=== PATIENT | male | born 1980 | race Caucasian/White ===

== ENCOUNTER 2021-07-15 12:51 | Inpatient (IN) | payer OTHER, SELFPAY ==
[2021-07-15] VITALS (67 sets, daily range): BP systolic 85–117; BP diastolic 58–84; PULSE 83–104; RESP 14–28; TEMP 36.5–37.3; O2SAT 94–97; BMI 24.1
--- NOTE | ~2021-07-15 | CT_ITS ---
EXAMINATION: CTA chest PE protocol DATE: 07/15/2021 14:55 INDICATION: Shortness of breath, fever. Hemoptysis, tachycardia. Covid-positive. TECHNIQUE: Computed tomography angiography (CTA) of the chest was performed with 100 mL Omnipaque-350 intravenous contrast timed to evaluate the pulmonary arteries. Coronal maximum intensity projection 3D-reconstructions were created by the technologist. Automated exposure control and iterative reconst ruction technique were employed. Exam dose: 271.56 mGy-cm total exam DLP. COMPARISON: 07/15/2021 portable AP chest FINDINGS: There is diagnostic contrast enhancement of the pulmonary arteries and no evidence of pulmo nary embolism. No thoracic aortic aneurysm or dissection. Normal size and homogeneous enhancement of the thyroid gland. Normal heart size. No pericardial or pleural effusion. Patchy groundglass infiltrates scattered throughout all lobes of both lungs, consistent with multifoc al pneumonia, most likely Covid 19 pneumonia. Included skeletal structures are unremarkable. IMPRESSION: Patchy bilateral pulmonary infiltrates consistent with Covid pneumonia No evidence of pulmonary embolism Reviewed, dictated and finalized at [facility]. Reviewed, dictated and finalized at [facility]. IMPRESSION: Patchy bilateral pulmonary infiltrates consistent with Covid pneumo bhavana No evidence of pulmonary embolism
--- NOTE | ~2021-07-15 | XR_ITS ---
EXAMINATION: XR chest 1V portable DATE: 07/15/2021 13:12 INDICATION: Cough, fever and shortness of breath. COVID positive. TECHNIQUE: frontal view of the chest was obtained. COMPARISON: None FINDINGS: Patchy airspace opacities in the mid and lower lung zones, left greater than right. No pleural effusi on or pneumothorax. The cardiomediastinal silhouette is within normal limits for AP technique. Visual ized bones and soft tissues are unremarkable. IMPRESSION: 1. Patchy bilateral airspace opacities in the mid and lower lung zones, left greater than right which could represent COVID pneumonia or mild pulmonary edema. Reviewed, dictated and finalized at location [facility]. IMPRESSION: 1. Patchy bilateral airspace opacities in the mid and lower lung zones, left gr eater than right which could represent COVID pneumonia or mild pulmonary edema.
--- NOTE | 2021-07-15 13:00 | ECG_ITS ---
Measurements Intervals [place] Rate: 93 P: 38 MO: 126 QRS: 64 QRSD: 101 T: 17 QT: 328 QTc: 409 Interpretive Statements SINUS RHYTHM POSSIBLE LEFT ATRIAL ENLARGEMENT ST ELEVATION IN DIFFUSE LEADS- PROBABLY EARLY REPOLARIZATION ABNORMALITY MINIMAL Q WAVES- INFERIOR LEADS BORDERLINE ECG Electronically Signed On 07-16-2021 15:08:57 CDT by Guero Granados D.O.
--- NOTE | 2021-07-15 13:01 | ED.URI ---
HPI - URI/Sore Throat General Chief Complaint: Upper Respiratory Infection Stated Complaint: Covid + and coughing up blood, not vaccinated Time Seen by Provider: 07/15/21 12:54 History of Present Illness HPI Narrative: Patient presents with cough and myalgias. Patient reports he has had cough, fatigue, general body aches for the past week. He was tested for Covid and was called today to let him know that his test was positive. He also noted worsening cough today with some hemoptysis he called in urgent care was referred to the ER for evaluation. Hemoptysis is with small streaks. Denies any lightheadedness or dizziness denies any focal chest pain or pleurisy Related Data Home Medications Medication Instructions Recorded Confirmed No Home Medications 07/15/21 07/15/21 Allergies Allergy/AdvReac Type Severity Reaction Status Date / Time No Known Allergies Allergy Verified 07/15/21 12:59 Review of Systems Review of Systems: CONSTITUTIONAL: Denies fever, chills, or sweats. EYES: Denies visual changes, redness, or discharge. ENT: Denies rhinorrhea, congestion, sore throat, or otalgia. CARDIOVASCULAR: Denies chest pain, palpitations, or edema. RESPIRATORY: Reports cough and shortness of breath GASTROINTESTINAL: Denies abdominal pain, vomiting, or diarrhea. GENITOURINARY: Denies dysuria or hematuria. SKIN: Denies rash or itching. MUSCULOSKELETAL: Denies back pain, joint pain, or myalgia. NEUROLOGIC: Denies headache, numbness, dizziness, or weakness. PSYCHIATRIC: Denies anxiety or depression. All systems reviewed & are unremarkable except as noted in HPI and below PMFSH Past Medical History Medical History (Updated 07/15/21 @ 16:56 by Ania Moraes NP) No pertinent past medical history Tobacco abuse Surgical History Surgical History (Updated 07/15/21 @ 16:50 by Ania Moraes NP) No pertinent past surgical history Family History Family History (Updated 07/15/21 @ 16:50 by Ania Moraes NP) Unknown No pertinent family history Social History Social History (Updated 07/15/21 @ 16:53 by Ania Moraes NP) Social History: The patient lives with his girlfriend. He is single and has no children. He works for [employer]. The patient continues to smoke a half pack a cigarettes a day. Occasionally smokes marijuana. He does not use any illicit drugs or alcohol. He does not have a durable power senior trial attorney for healthcare. the patient desires to be a full code. Smoking status: Current some day smoker Tobacco type: cigarettes Substance use: current Substance use type: marijuana Living arrangements: with friend(s) Occupation/Education: occupation Gender identity (if verbalized by the patient): Male Exam Narrative: GENERAL: Well-appearing, well-nourished, and in no acute distress. HEAD: Normocephalic, atraumatic. EYES: PERRLA and EOMI. ENT: Nares clear, no rhinorrhea or epistaxis. Mucous membranes moist. NECK: Supple. No masses. No JVD CHEST: Clear to auscultation. No respiratory distress. No wheezes rales or rhonchi HEART: Regular rate and rhythm. No murmur heard. Normal peripheral pulses. ABDOMEN: Soft, nontender, nondistended, normal active bowel sounds. EXTREMITIES: Normal range of motion. No edema. SKIN: Warm, dry, no rash. NEURO: No focal deficits. Alert and oriented x3. PSYCH: Normal mood and affect. Course Vital Signs Vital signs: Vital Signs Temperature 37.3 C 07/15/21 12:57 Pulse Rate 104 H 07/15/21 12:57 Respiratory Rate 22 H 07/15/21 12:57 Blood Pressure 117/83 07/15/21 12:57 Pulse Oximetry 96 07/15/21 12:57 Temperature 37.3 C 07/15/21 12:57 Pulse Rate 87 07/15/21 17:46 Respiratory Rate 21 H 07/15/21 17:46 Blood Pressure 96/76 L 07/15/21 17:46 Pulse Oximetry 95 07/15/21 17:25 MDM - URI/Sore Throat MDM Narrative Medical decision making narrative: H&P as above, vs initially with mild tachycardia no hypoxia, pt lo
[2021-07-15] MEDS: ONDANSETRON INJ 4 MG/2 ML VIAL IV PUSH (13:18)
[2021-07-15] MEDS: SODIUM CHLORIDE 0.9% IV 1,000 ML 999 ML IV CONT (13:18)
[2021-07-15 13:34] LABS: Basophils Percent Auto 0.3 % (0.2-1.2); Hematocrit 47.1 % (42.0-52.0); Hemoglobin 15.8 g/dL (14.0-18.0); Immature Granulocyte Absolute 0.02 K/mm3 (0.00-0.031); Immature Granulocyte Percent A 0.5 % (0-0.5); Lymphocytes Absolute Auto 1.05 K/mm3 (0.9-3.2); Lymphocytes Percent Auto 26.3 % (18.3-44.2); Mean Corpuscular HGB Conc 33.5 g/dl (32-36); Mean Corpuscular Volume 89.5 fl (80-100); Mean Platelet Volume 9.6 fl (7.4-10.4); Monocytes Absolute Auto 0.3 K/mm3 (0.1-0.6); Monocytes Percent Auto 6.8 % (2.6-8.5); Neutrophils Absolute Auto 2.6 K/mm3 (1.3-6.7); Neutrophils Percent Auto 66.1 % (45.5-73.1); Platelet Count Result 141 k/mm3 (150-375); Red Blood Count 5.26 M/mm3 (4.6-6.20); Red Cell Distribution Width 13.1 % (11.5-14.5)
[2021-07-15 13:46] LABS: Alanine Aminotransferase 47 U/L (4-50); Alkaline Phosphatase 81 U/L (38-126); Anion Gap 9 mmol/L (8-16); Aspartate Amino Transferase 37 U/L (17-59); Bilirubin,Total 0.5 mg/dL (0.2-1.3); Blood Urea Nitrogen 21 mg/dL (9-20); Calcium 8.3 mg/dL (8.4-10.2); Carbon Dioxide 22 mmol/L (22-30); Chloride 100 mmol/L (98-107); Estimated CRCL calculation 95 ml/min; Estimated Glomerular Filt Rate > 60; Glucose 111 mg/dL (65-110); Potassium 4.2 mmol/L (3.4-5.0); Sodium 131 mmol/L (137-145)
--- NOTE | 2021-07-15 14:43 | PC.NURSE ---
Pt off floor to radiology
[2021-07-15] MEDS: KETOROLAC 15 MG/ML VIAL (*BKC) IV PUSH (15:14)
--- NOTE | 2021-07-15 16:44 | PM.IMHP ---
H&P: HPI History of Present Illness Date/Time: 07/15/21 16:44 this is a 40-year-old male patient. Who stated that he has had a cough and malaise for several days. He has tactile fever. His diaphoretic. The patient stated that he tested positive for COVID-19 on Friday. The patient went to the urgent care today who returns for him to come to the emergency room here. Patient had small streaks of blood in his sputum. The patient attempted to go to work today but felt very short of breath with exertion. Patient's O2 saturations are 90 to be 91% on room air without exertion. The patient was given IV fluids, Zofran, Toradol, and Decadron. Chest x-ray was read as patchy bilateral airspace opacities in the mid and lower lung zones, left greater than right which could represent COVID pneumonia or mild pulmonary edema. CTA patchy bilateral pulmonary infiltrates consistent with COVID pneumonia. No evidence of pulmonary embolism. The patient is being admitted for observation status on the date of service of 07/15/2021. Chief Complaint: sob Review of Systems Review of Systems: All systems reviewed & are unremarkable except as noted in HPI and below Constitutional: Constitutional: Reports as per HPI and Reports no additional constitutional complaints Eyes: Eyes: Reports as per HPI and Reports no additional eye complaints ENT: Reports system reviewed and no additional complaints, except as documented and Reports Normal hearing present Cardiovascular: Cardiovascular: Reports no additional cardiovascular complaints Respiratory: Respiratory: Reports no additional respiratory complaints and Reports no additional respiratory complaints Gastrointestinal: Gastrointestinal: Reports as per HPI and Reports no additional gastrointestinal complaints Musculoskeletal: Musculoskeletal: Reports no additional musculoskeletal complaints Integumentary/Breasts: Skin/Breast: Reports system reviewed and no additional complaints, except as docu and Reports as per HPI Neurologic: Reports system reviewed and no additional complaints, except as documented, Reports as per HPI and Reports Normal hearing present Psychiatric: Psychiatric: Reports no additional psychiatric complaints and Reports as per HPI Endocrine: Endocrine: Reports no additional endocrine complaints Hematologic/Lymphatic: Hematologic/Lymphatic: Reports no additional hematologic/lymphatic complaints Allergic/Immunologic: Allergic/Immunologic: Reports no additional allergic/immunologic complaints COUNTS INCLUDE 234 BEDS AT THE [facility] Past Medical History Medical History (Updated 07/15/21 @ 16:56 by Ania Moraes NP) No pertinent past medical history Tobacco abuse Surgical History Surgical History (Updated 07/15/21 @ 16:50 by Ania Moraes NP) No pertinent past surgical history Family History Family History (Updated 07/15/21 @ 16:50 by Ania Moraes NP) Unknown No pertinent family history Social History Social History (Updated 07/15/21 @ 16:53 by Ania Moraes NP) Social History: The patient lives with his girlfriend. He is single and has no children. He works for [employer]. The patient continues to smoke a half pack a cigarettes a day. Occasionally smokes marijuana. He does not use any illicit drugs or alcohol. He does not have a durable power district attorney for healthcare. the patient desires to be a full code. Smoking status: Current some day smoker Tobacco type: cigarettes Substance use: current Substance use type: marijuana Living arrangements: with friend(s) Occupation/Education: occupation Gender identity (if verbalized by the patient): Male Meds Home Medications and Allergies Home Medications Medication Instructions Recorded Confirmed Type No Home Medications 07/15/21 07/15/21 History Allergies Allergy/AdvReac Type Severity Reaction Status Date / Time No Known Allergies Allergy Verified 07/15/21 12:59 Vital Signs Vital Signs - 24 hr
[2021-07-15 16:48] LABS: Alanine Aminotransferase 41 U/L (4-50); Estimated CRCL calculation 106 ml/min; Estimated Glomerular Filt Rate > 60
[2021-07-15 16:49] LABS: CRP 1.5 mg/dL (<1.0); Lactate Dehydrogenase 712 U/L (313-618)
[2021-07-15 16:50] LABS: Prothrombin Time 12.6 Seconds (11.1-14.7)
[2021-07-15 16:52] LABS: D Dimer 0.56 ug/mL (<0.48)
[2021-07-15 17:05] LABS: D Dimer 0.56 ug/mL (<0.48)
[2021-07-15] MEDS: DEXAMETHASONE SOD PHOS INJ 4 MG/ML VIAL 10 MG IV PUSH (17:20)
--- NOTE | 2021-07-15 17:24 | PC.NURSE ---
Saturations 91%. Placed on 2 liters NC. Pt states he discussed oxygen with hospitalist.
--- NOTE | 2021-07-15 17:29 | PC.NURSE ---
Called dietary for dinner tray for patient.
[2021-07-15] MEDS: REMDESIVIR 200 MG/NS 250 ML 200 MG/250 ML BAG 250 MG IVPB (17:48)
--- NOTE | 2021-07-15 20:27 | ADMGEN ---
This patient, Luis Knox, was admitted to [facility] Surg Room 319-01 at 2009. Patient/family oriented to hospital policies and general routines including ID bracelet, bed and alarms, visiting hours, pain management, procedures, bathroom and other care routines, personal items, smoking policy, room service/diet, and visiting hours. Information on how to activate the Rapid Response Team has been discussed. Patient/Family are encouraged to report perceived risks to care and to ask questions if they do not understand what they are told or what they should do.
[2021-07-16] VITALS: BP 99/68; PULSE 72; RESP 18; TEMP 36.1; O2SAT 91
[2021-07-16 04:00] VITALS: BP 99/53; PULSE 71; RESP 18; TEMP 36.1; O2SAT 96
[2021-07-16 06:41] LABS: Basophils Percent Auto 0.7 % (0.2-1.2); Hematocrit 43.8 % (42.0-52.0); Hemoglobin 14.5 g/dL (14.0-18.0); Lymphocytes Absolute Auto 0.51 K/mm3 (0.9-3.2); Lymphocytes Percent Auto 37.2 % (18.3-44.2); Mean Corpuscular HGB Conc 33.1 g/dl (32-36); Mean Corpuscular Hemoglobin 29.6 pg (26-34); Mean Corpuscular Volume 89.4 fl (80-100); Mean Platelet Volume 9.1 fl (7.4-10.4); Monocytes Absolute Auto 0.1 K/mm3 (0.1-0.6); Monocytes Percent Auto 5.8 % (2.6-8.5); Neutrophils Absolute Auto 0.8 K/mm3 (1.3-6.7); Neutrophils Percent Auto 56.3 % (45.5-73.1); Platelet Count Result 160 k/mm3 (150-375); Red Cell Distribution Width 13.1 % (11.5-14.5)
[2021-07-16 07:08] LABS: INR 0.9; Prothrombin Time 12.4 Seconds (11.1-14.7)
[2021-07-16 07:11] LABS: Alanine Aminotransferase 42 U/L (4-50); Albumin Level 3.7 g/dL (3.5-5.1); Alkaline Phosphatase 83 U/L (38-126); Anion Gap 8 mmol/L (8-16); Aspartate Amino Transferase 28 U/L (17-59); Bilirubin,Total 0.4 mg/dL (0.2-1.3); Blood Urea Nitrogen 22 mg/dL (9-20); CRP 1.7 mg/dL (<1.0); Calcium 8.2 mg/dL (8.4-10.2); Carbon Dioxide 22 mmol/L (22-30); Chloride 108 mmol/L (98-107); Estimated CRCL calculation 144 ml/min; Estimated Glomerular Filt Rate > 60; Glucose 121 mg/dL (65-110); Lactate Dehydrogenase 569 U/L (313-618); Potassium 4.3 mmol/L (3.4-5.0); Sodium 138 mmol/L (137-145)
[2021-07-16 07:35] LABS: Thyroid Stimulating Hormone Reflex 0.174 uIU/mL (0.465-4.68)
[2021-07-16 07:53] LABS: White Blood Count 1.4 K/mm3 (4.5-10.0)
[2021-07-16 08:00] VITALS: BP 98/67; PULSE 79; RESP 18; TEMP 36.3; O2SAT 94
[2021-07-16] MEDS: ENOXAPARIN 40 MG/0.4 ML SYRINGE SUB-Q (08:48)
[2021-07-16] MEDS: guaiFENesin/DEXTROMETHORPHAN 10 ML UDC PO ×2 (08:53→20:18)
[2021-07-16 12:00] VITALS: BP 112/87; PULSE 92; RESP 20; TEMP 36.6; O2SAT 95
[2021-07-16 12:32] LABS: Free T4 Free Thyroxine Reflex 1.26 ng/dL (0.78-2.19)
--- NOTE | 2021-07-16 12:38 | PM.IMPN ---
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 Continue daily steroids and remdesivir. Monitor oxygen saturation, however currently on room air and asymptomatic, and able to ambulate. Noted that CT angiogram did not show pulmonary embolism, continue DVT prophylaxis with Lovenox. Possible discharge tomorrow if patient at baseline. Subjective Date/time seen: 07/16/21 12:38 No acute medical complaints. On room oxygen, breathing okay. Tolerating diet. Sleeping through the night. Able to ambulate without dyspnea. Review of Systems Review of Systems: All systems reviewed & are unremarkable except as noted in HPI and below Exam Const: General: no acute distress Neck: Neck: no JVD Resp: Effort & Inspection: normal respiratory effort Auscultation: clear to auscultation bilaterally Cardio: Rate: regular rate Rhythm: regular rhythm GI: GI Palp: Yes Soft to palpation and No Tenderness to palpation present (GI) Objective Data Vital Signs Vital Signs: Vital Signs - 24 hr 07/15/21 12:57 07/15/21 13:07 07/15/21 13:15 Temperature 99.2 F Pulse Rate 104 H 96 94 Respiratory Rate 22 H 18 27 H Blood Pressure 117/83 Pulse Oximetry 96 07/15/21 13:16 07/15/21 13:17 07/15/21 13:19 Temperature Pulse Rate 94 93 92 Respiratory Rate 25 H 27 H 23 H Blood Pressure 88/63 L 85/63 L 92/65 L Pulse Oximetry 07/15/21 13:20 07/15/21 13:30 07/15/21 13:31 Temperature Pulse Rate 95 93 95 Respiratory Rate 19 21 H 23 H Blood Pressure 93/69 L Pulse Oximetry 07/15/21 13:45 07/15/21 13:46 07/15/21 14:00 Temperature Pulse Rate 97 95 97 Respiratory Rate 21 H 22 H 24 H Blood Pressure 89/70 L Pulse Oximetry 07/15/21 14:01 07/15/21 14:15 07/15/21 14:16 Temperature Pulse Rate 99 100 100 Respiratory Rate 28 H 25 H 27 H Blood Pressure 97/73 L 100/71 Pulse Oximetry 07/15/21 14:17 07/15/21 14:30 07/15/21 14:31 Temperature Pulse Rate 99 99 99 Respiratory Rate 26 H 21 H 23 H Blood Pressure 87/58 L Pulse Oximetry 07/15/21 14:51 07/15/21 14:52 07/15/21 15:00 Temperature Pulse Rate 100 97 96 Respiratory Rate 14 25 H 18 Blood Pressure 108/82 Pulse Oximetry 07/15/21 15:02 07/15/21 15:04 07/15/21 15:15 Temperature Pulse Rate 96 96 Respiratory Rate 14 20 Blood Pressure 92/67 L Pulse Oximetry 07/15/21 15:16 07/15/21 15:30 07/15/21 15:31 Temperature Pulse Rate 99 96 98 Respiratory Rate 27 H 26 H 25 H Blood Pressure 94/64 L 95/73 L Pulse Oximetry 07/15/21 15:45 07/15/21 15:46 07/15/21 15:47 Temperature Pulse Rate 95 95 96 Respiratory Rate 25 H 23 H 19 Blood Pressure 98/70 L Pulse Oximetry 07/15/21 16:00 07/15/21 16:01 07/15/21 16:15 Temperature Pulse Rate 94 93 93 Respiratory Rate 24 H 22 H 22 H Blood Pressure 91/66 L Pulse Oximetry 07/15/21 16:30 07/15/21 17:10 07/15/21 17:16 Temperature Pulse Rate 92 Respiratory Rate 22 H Blood Pressure 105/76 97/74 L Pulse Oximetry 07/15/21 17:19 07/15/21 17:24 07/15/21 17:25 Temperature Pulse Rate 90 Respiratory Rate 17 Blood Pressure Pulse Oximetry 97 95 07/15/21 17:30 07/15/21 17:31 07/15/21 17:45 Temperature Pulse Rate 86 87 86 Respiratory Rate 24 H 19 20 Blood Pressure 97/76 L Pulse Oximetry 07/15/21 17:46 07/15/21 17:47 07/15/21 18:00 Temperature Pulse Rate 87 87 89 Respiratory Rate 21 H 19 23 H Blood Pressure 96/76 L Pulse Oximetry 07/15/21 18:02 07/15/21 18:15 07/15/21 18:16 Temperature Pulse Rate 90 94 97 Respiratory Rate 21 H 15 19 Blood Pressure 91/71 L 107/84 Pulse Oximetry 07/15/21 18:30 07/15/21 18:31 07/15/21 18:32 Temperature Pulse Rate 86
[2021-07-16 14:08] LABS: Total Triiodothyronine (T3) 1.11 NG/ML (0.97-1.69)
[2021-07-16 16:00] VITALS: BP 114/84; PULSE 81; RESP 18; TEMP 36.4; O2SAT 95
[2021-07-16 20:00] VITALS: BP 106/71; PULSE 81; RESP 16; TEMP 36.1; O2SAT 94
[2021-07-16] MEDS: REMDESIVIR 100 MG/NS 250 ML 100 MG/250 ML BAG 250 MG IVPB (21:31)
[2021-07-17] VITALS (7 sets, daily range): BP systolic 100–114; BP diastolic 65–87; PULSE 67–78; RESP 14–18; TEMP 36.1–36.9; O2SAT 93–97
[2021-07-17 07:04] LABS: Hematocrit 42.5 % (42.0-52.0); Hemoglobin 13.7 g/dL (14.0-18.0); Immature Granulocyte Absolute 0.02 K/mm3 (0.00-0.031); Immature Granulocyte Percent A 0.4 % (0-0.5); Lymphocytes Absolute Auto 0.78 K/mm3 (0.9-3.2); Lymphocytes Percent Auto 13.9 % (18.3-44.2); Mean Corpuscular HGB Conc 32.2 g/dl (32-36); Mean Corpuscular Hemoglobin 29.1 pg (26-34); Mean Corpuscular Volume 90.4 fl (80-100); Mean Platelet Volume 9.7 fl (7.4-10.4); Monocytes Absolute Auto 0.4 K/mm3 (0.1-0.6); Monocytes Percent Auto 7.5 % (2.6-8.5); Neutrophils Absolute Auto 4.4 K/mm3 (1.3-6.7); Neutrophils Percent Auto 78.2 % (45.5-73.1); Platelet Count Result 193 k/mm3 (150-375); Red Cell Distribution Width 12.8 % (11.5-14.5); White Blood Count 5.6 K/mm3 (4.5-10.0)
[2021-07-17 07:14] LABS: Alanine Aminotransferase 35 U/L (4-50); Albumin Level 3.4 g/dL (3.5-5.1); Alkaline Phosphatase 78 U/L (38-126); Anion Gap 8 mmol/L (8-16); Aspartate Amino Transferase 38 U/L (17-59); Bilirubin,Total 0.2 mg/dL (0.2-1.3); Blood Urea Nitrogen 18 mg/dL (9-20); Calcium 8.5 mg/dL (8.4-10.2); Carbon Dioxide 24 mmol/L (22-30); Chloride 103 mmol/L (98-107); Estimated CRCL calculation 144 ml/min; Estimated Glomerular Filt Rate > 60; Glucose 118 mg/dL (65-110); Magnesium 2.4 mg/dL (1.6-2.3); Phosphorus 2.8 mg/dL (2.5-4.5); Potassium 4.1 mmol/L (3.4-5.0); Sodium 135 mmol/L (137-145)
[2021-07-17 07:25] LABS: Prothrombin Time 12.7 Seconds (11.1-14.7)
[2021-07-17] MEDS: ENOXAPARIN 40 MG/0.4 ML SYRINGE SUB-Q ×2 (09:53→22:37)
--- NOTE | 2021-07-17 16:43 | PM.IMPN ---
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 Continue daily steroids and remdesivir. Monitor oxygen saturation, however currently on room air and asymptomatic, and able to ambulate. Noted that CT angiogram did not show pulmonary embolism, continue DVT prophylaxis with Lovenox. 07/17/21 16:43 Patient is 40-year-old male was positive for COVID-19 on FridayJuly 13 upon arrival to emergency he was complaining of cough malaise and feverish patient was started on dexamethasone and remdesivir upon arrival, today patient states is feeling quite lethargic, fatigued, nausea or vomiting, most likely symptoms of worsening due to COVID-19,denies any fever or chills, will continue to monitor the patient, and monitor and further recommendation to follow. Subjective Date/time seen: 07/17/21 16:43 Patient is 40-year-old male was positive for COVID-19 on FridayJuly 13 upon arrival to emergency he was complaining of cough malaise and feverish patient was started on dexamethasone and remdesivir upon arrival, today patient states is feeling quite lethargic, fatigued, nausea or vomiting, most likely symptoms of worsening due to COVID-19,denies any fever or chills, will continue to monitor the patient, and monitor and further recommendation to follow. Review of Systems Review of Systems: All systems reviewed & are unremarkable except as noted in HPI and below Exam Narrative: Patient is comfortable, NAD HEENT: eyes are clear and none icteric LUNGS: normal respiratory effort ABD: not distended Lower extremities: no edema SKIN: nonjaundiced Neuro: grossly intact normal speech. Objective Data Vital Signs Vital Signs: Vital Signs - 24 hr 07/16/21 20:00 07/17/21 00:00 07/17/21 04:00 Temperature 97.0 F L 97.0 F L 96.9 F L Pulse Rate 81 77 76 Respiratory Rate 16 18 18 Blood Pressure 106/71 113/72 106/76 Pulse Oximetry 94 96 97 07/17/21 08:00 07/17/21 12:00 Temperature 97.6 F 98.4 F Pulse Rate 67 78 Respiratory Rate 14 16 Blood Pressure 104/77 100/65 Pulse Oximetry 95 93 Intake/Output Intake/Output: Intake & Output 07/14/21 07/15/21 07/16/21 07/17/21 23:59 23:59 23:59 23:59 Intake Total 1250 1570 1220 Output Total 500 Balance 1250 1070 1220 Meds/Results Medications: Active Medications Generic Name Dose Route Start Last Admin Trade Name Freq PRN Reason Stop Dose Admin Acetaminophen 650 mg 07/15/21 16:39 Acetaminophen 325 Mg Tablet PO Q4H PRN headache or fever Albuterol 2 puff 07/15/21 16:56 Albuterol Sulfate (*Sp) Aerosol 1 Puff INHALATION Q6HRT PRN Shortness Of Breath Calcium Carbonate 200 mg 07/17/21 05:06 Calcium Carbonate (Tums) 500 Mg (200 Mg Elemental) PO Q6H PRN Indigestion Dexamethasone Sodium Phosphate 6 mg 07/16/21 09:00 07/17/21 09:54 Dexamethasone Sod Phos Inj 10 Mg/Ml 1 Ml Vial IV PUSH 07/25/21 09:01 6 mg DAILY GALO Administration Enoxaparin Sodium 40 mg 07/17/21 21:00 Enoxaparin 40 Mg/0.4 Ml Syringe SUB-Q Q12HR GALO Guaifenesin/Dextromethorphan 10 ml 07/15/21 16:56 07/16/21 20:18 Guaifenesin/Dextromethorphan 10 Ml Udc PO 10 ml Q4H PRN Administration Cough Remdesivir 100 mg in 250 mls @ 250 mls/hr 07/16/21 22:00 07/16/21 22:30 IVPB 07/19/21 22:01 Infused Q24H GALO Infusion Radiology Results: ITS Impressions Chest X-Ray 07/15/21 13:45 IMPRESSION: 1. Patchy bilateral airspace opacities in the mid and lower lung zones, left greater than right which could represent COVID pneumonia or mild pulmonary edema. Chest CTA 07/15/21 15:04 IMPRESSION: Patchy bilateral pulmonary infiltrates consistent with Covid pneumonia No evidence of pulmonary embolism
[2021-07-17] MEDS: REMDESIVIR 100 MG/NS 250 ML 100 MG/250 ML BAG 250 MG IVPB (22:36)
[2021-07-18] VITALS: BP 103/75; PULSE 81; RESP 18; TEMP 36.4; O2SAT 96
[2021-07-18 06:00] VITALS: BP 105/69; PULSE 71; RESP 18; TEMP 36.4; O2SAT 97
[2021-07-18 06:59] LABS: Prothrombin Time 12.9 Seconds (11.1-14.7)
[2021-07-18 07:01] LABS: Alanine Aminotransferase 46 U/L (4-50); Estimated CRCL calculation 144 ml/min; Estimated Glomerular Filt Rate > 60
[2021-07-18 08:00] VITALS: BP 95/65; PULSE 73; RESP 14; TEMP 36.5; O2SAT 96
[2021-07-18] MEDS: ENOXAPARIN 40 MG/0.4 ML SYRINGE SUB-Q (09:16)
[2021-07-18 12:00] VITALS: BP 100/64; PULSE 85; RESP 16; TEMP 36.6; O2SAT 98
--- NOTE | 2021-07-18 15:42 | PM.DS ---
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 Continue daily steroids and remdesivir. Monitor oxygen saturation, however currently on room air and asymptomatic, and able to ambulate. Noted that CT angiogram did not show pulmonary embolism, continue DVT prophylaxis with Lovenox. 07/17/21 16:43 Patient is 40-year-old male was positive for COVID-19 on FridayJuly 13 upon arrival to emergency he was complaining of cough malaise and feverish patient was started on dexamethasone and remdesivir upon arrival, today patient states is feeling quite lethargic, fatigued, nausea or vomiting, most likely symptoms of worsening due to COVID-19,denies any fever or chills, will continue to monitor the patient, and monitor and further recommendation to follow. DS: Summary Hospital Course Reason for hospitalization: this is a 40-year-old male patient. Who stated that he has had a cough and malaise for several days. He has tactile fever. His diaphoretic. The patient stated that he tested positive for COVID-19 on Friday. The patient went to the urgent care today who returns for him to come to the emergency room here. Patient had small streaks of blood in his sputum. The patient attempted to go to work today but felt very short of breath with exertion. Patient's O2 saturations are 90 to be 91% on room air without exertion. The patient was given IV fluids, Zofran, Toradol, and Decadron. Chest x-ray was read as patchy bilateral airspace opacities in the mid and lower lung zones, left greater than right which could represent COVID pneumonia or mild pulmonary edema. CTA patchy bilateral pulmonary infiltrates consistent with COVID pneumonia. No evidence of pulmonary embolism. The patient is being admitted for observation status on the date of service of 07/15/2021. Chief Complaint: sob Hospital Course: Patient discahrged on 07/18/2021 Patient tested positive for COVID on Friday at a different facility, will not repeat here as negative results would not supervisor records change. Continue daily steroids and remdesivir. Monitor oxygen saturation, however currently on room air and asymptomatic, and able to ambulate. Noted that CT angiogram did not show pulmonary embolism, continue DVT prophylaxis with Lovenox. Patient is 40-year-old male was positive for COVID-19 on FridayJuly 13 upon arrival to emergency he was complaining of cough malaise and feverish patient was started on dexamethasone and remdesivir upon arrival, today patient states is feeling quite lethargic, fatigued, nausea or vomiting, most likely symptoms of worsening due to COVID-19,denies any fever or chills, will continue to monitor the patient, and monitor and further recommendation to follow. Patient is clinically stable today, will discharge patient today. Time Spent with Patient Time attestation: Total time spent providing and/or coordinating discharge services: Exam Narrative: Patient is comfortable, NAD HEENT: eyes are clear and none icteric LUNGS: normal respiratory effort ABD: not distended Lower extremities: no edema SKIN: nonjaundiced Neuro: grossly intact normal speech. DS: Data Data Completed and Pending Labs on day of discharge: Labs from last 24 hours 07/18/21 07/18/21 05:59 05:59 PT 12.9 INR 1.0 Creatinine 0.60 L Estim Creat Clear Calc 144 Estimated GFR > 60 ALT 46 Discharge Plan Discharge Attending physician on discharge: Gia Cavazos Consulting providers: Ania Moraes ; Ata Ellison ; Guero Granados ; Bassem Law ; Iliana Galvin Discharging Clinician: Gia Cavazos Patient Disposition: Home, Self-Care Activity: as tolerate
== END 2021-07-18 16:35 | disposition home or self-care (01) | DRG 137 ==
LOC: ANHED 15:58 → ANH3MEDSUR 19:00
PROVIDERS: Internal Medicine; Nurse Practitioner; Admitting Provider Internal Medicine Nephrology; Emergency Provider Emergency Medicine; PCP Family Medicine; Visit Provider Family Medicine
DX: U07.1 COVID-19 (principal); J12.82 Pneumonia due to coronavirus disease 2019; R53.83 Other fatigue; R04.2 Hemoptysis; F17.210 Nicotine dependence, cigarettes, uncomplicated; F12.90 Cannabis use, unspecified, uncomplicated; R09.02 Hypoxemia; R50.9 Fever, unspecified; R11.2 Nausea with vomiting, unspecified
CPT/HCPCS: 36415; 71045; 71275; 80053; 82565; 82728; 83615; 83735; 84100; 84439; 84443; 84460; 84480; 85025; 85060; 85380; 85610; 86140; 93005; 96361; 96365; 96372; 96374; 96375; 99285; A9270; G0378; G0379; J1100; J1650; J1885; J2405; J7030; Q9967